=== PATIENT | female | born 1975 | race Caucasian/White ===

== ENCOUNTER 2020-12-13 16:43 | Inpatient (IN) | payer SELFPAY ==
[~2020-12-13] VITALS: Ht 154.9 cm; Wt 75.0 kg
[2020-12-13] MEDS ORDERED: SODIUM CHLORIDE 0.9% 1000ML 1,000 ML IV SCH (17:45)
[2020-12-13 18:02] LABS: BASOPHILS % 0.2 % (0.0-1.0); EOSINOPHILS # (AUTO) 0.1 (0.0-0.4); EOSINOPHILS % 0.7 % (0.0-6.0); HEMOGLOBIN 14.2 g/dL (12.0-16.0); LYMPHOCYTES # (AUTO) 1.7 (1.0-3.2); LYMPHOCYTES % 9.9 % (18.0-39.1); MEAN CORPUSCULAR HEMOGLOBIN 29.4 pg (28-32); MEAN CORPUSCULAR HGB CONC 34.6 g/dL (31-35); MEAN CORPUSCULAR VOLUME 84.9 fL (81-99); MONOCYTES # (AUTO) 0.9 (0.2-0.8); MONOCYTES % 5.3 % (4.4-11.3); NEUTROPHILS % 83.2 % (38.7-80.0); PLATELET COUNT 295 x10e3/uL (140-360); RED BLOOD COUNT 4.83 x10e6/uL (3.6-5.1); RED CELL DISTRIBUTION WIDTH 12.8 % (11.7-14.4)
[2020-12-13 18:05] LABS: CLARITY,URINE CLEAR (CLEAR); COLOR,URINE YELLOW (YELLOW); LEUKOCYTE ESTERASE ,URINE NEGATIVE (NEGATIVE); NITRITE,URINE NEGATIVE (NEGATIVE); PROTEIN,URINE DIPSTICK NEGATIVE (NEGATIVE)
[2020-12-13 18:06] LABS: KETONES,URINE TRACE (NEGATIVE); URINE UROBILINOGEN 0.2 mg/dL (0.2 - 1)
[2020-12-13 18:09] LABS: BACTERIA,URINE RARE /HPF; EPITHELIAL CELLS,URINE FEW /LPF; RBC,URINE 0-5 /HPF (0-5); WBC,URINE (MAN) 0-5 /HPF (0-5)
[2020-12-13 18:17] LABS: ALBUMIN 3.9 g/dL (3.5-5.0); ALBUMIN/GLOBULIN RATIO 1.2 (0.8-2.0); ANION GAP 18.2 mmol/L (8-16); CALCIUM 9.6 mg/dL (8.4-10.2); CREATININE, SERUM 0.84 mg/dL (0.57-1.11); POTASSIUM 4.2 mmol/L (3.5-5.1)
[2020-12-13] MEDS ORDERED: ASPIRIN 325 MG TAB PO ONE (20:00)
[2020-12-13] MEDS ORDERED: DEXTROSE 50% SYRINGE 50 ML IV PRN (20:15)
[2020-12-13 22:20] LABS: ABG PH 7.43 (7.35-7.45)
[2020-12-13 22:21] LABS: ABG HCO3 24 mmol/L (22-26); ABG PCO2 36 mmHg (35-45); ABG PO2 75 mmHg (80-105); ABG TCO2 25
[2020-12-13] MEDS: INSULIN REGULAR, HUMAN 100 UNIT/1 ML SQ SCH (22:49)
[2020-12-13] MEDS: SODIUM CHLORIDE 0.9% 1000ML 1,000 ML IV SCH (22:50)
[2020-12-13] MEDS: ACETAMINOPHEN 325 MG TAB PO PRN (23:27)
[2020-12-13] MEDS ORDERED: ACETAMINOPHEN 325 MG TAB ONE (23:34)
[2020-12-13] MEDS ORDERED: ASPIRIN 325 MG TAB ONE (23:35)
[2020-12-13 23:40] VITALS: BP 145/107
[2020-12-14] VITALS (8 sets, daily range): BP systolic 107–145; BP diastolic 82–107
[2020-12-14] MEDS: SODIUM CHLORIDE 0.9% 1000ML 1,000 ML IV SCH ×3 (01:12→21:57)
[2020-12-14] MEDS: IBUPROFEN 600 MG TAB PO PRN ×2 (03:52→14:00)
[2020-12-14] MEDS ORDERED: METFORMIN HCL500 MG PO (04:47)
[2020-12-14] MEDS ORDERED: LISINOPRIL10 MG PO (04:49)
[2020-12-14] MEDS ORDERED: AMOXICILLIN500 MG PO (04:49)
[2020-12-14] MEDS ORDERED: HYDROCHLOROTH12.5 MG PO (04:57)
[2020-12-14] MEDS ORDERED: SIMVASTATIN20 MG PO (04:58)
[2020-12-14] MEDS ORDERED: FENOFIBRATE145 MG PO (04:59)
[2020-12-14 05:07] LABS: BASOPHILS # (AUTO) 0.1 (0.0-0.1); BASOPHILS % 0.4 % (0.0-1.0); EOSINOPHILS # (AUTO) 0.3 (0.0-0.4); EOSINOPHILS % 2.4 % (0.0-6.0); HEMATOCRIT 38.6 % (34.2-44.1); HEMOGLOBIN 12.9 g/dL (12.0-16.0); LYMPHOCYTES # (AUTO) 3.4 (1.0-3.2); MEAN CORPUSCULAR HEMOGLOBIN 28.9 pg (28-32); MEAN CORPUSCULAR HGB CONC 33.4 g/dL (31-35); MEAN CORPUSCULAR VOLUME 86.5 fL (81-99); MONOCYTES # (AUTO) 0.8 (0.2-0.8); MONOCYTES % 6.4 % (4.4-11.3); NEUTROPHILS # (AUTO) 8.1 (2.1-6.9); NEUTROPHILS % 63.3 % (38.7-80.0); PLATELET COUNT 253 x10e3/uL (140-360); RED BLOOD COUNT 4.46 x10e6/uL (3.6-5.1); RED CELL DISTRIBUTION WIDTH 13.1 % (11.7-14.4)
[2020-12-14 05:45] LABS: ANION GAP 14.7 mmol/L (8-16); CALCIUM 8.7 mg/dL (8.4-10.2); CREATININE, SERUM 0.63 mg/dL (0.57-1.11); POTASSIUM 3.7 mmol/L (3.5-5.1)
[2020-12-14 06:11] LABS: CREATINE KINASE MB 4.1 ng/mL (0-5.0)
[2020-12-14] MEDS: INSULIN REGULAR, HUMAN 100 UNIT/1 ML SQ SCH ×4 (07:30→21:00)
[2020-12-14] MEDS: ACETAMINOPHEN 325 MG TAB PO PRN ×2 (09:08→16:42)
[2020-12-14 13:12] LABS: CREATINE KINASE MB 3.3 ng/mL (0-5.0)
[2020-12-14] MEDS: LEVETIRACETAM 500 MG TAB PO SCH (16:44)
[2020-12-14] MEDS ORDERED: AMOXICILLIN 250 MG CAP PO SCH (17:00)
[2020-12-14] MEDS ORDERED: SIMVASTATIN 20 MG TAB PO SCH (21:00)
[2020-12-14] MEDS: AMOXICILLIN 875 MG PO SCH (21:56)
[2020-12-15] VITALS: BP 134/97
[2020-12-15 04:10] VITALS: BP 138/86
[2020-12-15 06:04] LABS: BASOPHILS % 0.3 % (0.0-1.0); EOSINOPHILS # (AUTO) 0.3 (0.0-0.4); EOSINOPHILS % 3.4 % (0.0-6.0); HEMOGLOBIN 12.2 g/dL (12.0-16.0); LYMPHOCYTES # (AUTO) 2.6 (1.0-3.2); MEAN CORPUSCULAR VOLUME 87.9 fL (81-99); MONOCYTES # (AUTO) 0.5 (0.2-0.8); MONOCYTES % 5.8 % (4.4-11.3); NEUTROPHILS # (AUTO) 5.8 (2.1-6.9); NEUTROPHILS % 62.2 % (38.7-80.0); PLATELET COUNT 251 x10e3/uL (140-360); RED BLOOD COUNT 4.21 x10e6/uL (3.6-5.1); RED CELL DISTRIBUTION WIDTH 13.2 % (11.7-14.4)
[2020-12-15] MEDS: SODIUM CHLORIDE 0.9% 1000ML 1,000 ML IV SCH ×2 (06:24→12:00)
[2020-12-15 06:32] LABS: ANION GAP 15.4 mmol/L (8-16); CALCIUM 8.4 mg/dL (8.4-10.2); CREATININE, SERUM 0.59 mg/dL (0.57-1.11); POTASSIUM 4.4 mmol/L (3.5-5.1)
[2020-12-15] MEDS: INSULIN REGULAR, HUMAN 100 UNIT/1 ML SQ SCH ×3 (07:30→16:30)
[2020-12-15] MEDS ORDERED: METFORMIN HCL 500 MG TAB PO SCH (08:00)
[2020-12-15 08:30] VITALS: BP 138/86
[2020-12-15 08:34] VITALS: BP 136/94
[2020-12-15] MEDS ORDERED: FENOFIBRATE 54 MG PO SCH ×2 (09:00→21:00)
[2020-12-15] MEDS ORDERED: NON-FORMULARY MEDICATION (Hydrochlorothiazide 12.5 MG) PO SCH (09:00)
[2020-12-15] MEDS ORDERED: FENOFIBRATE 145 MG TAB PO SCH (09:00)
[2020-12-15] MEDS ORDERED: HYDROCHLOROTHIAZIDE 25 MG TAB PO SCH (09:00)
[2020-12-15] MEDS ORDERED: LISINOPRIL 10 MG TAB PO SCH (09:00)
[2020-12-15] MEDS: LEVETIRACETAM 500 MG TAB PO SCH ×2 (09:19→17:17)
[2020-12-15] MEDS: AMOXICILLIN 875 MG PO SCH (09:20)
[2020-12-15] MEDS: IBUPROFEN 600 MG TAB PO PRN ×2 (10:25→16:15)
[2020-12-15 12:07] VITALS: BP 130/90
[2020-12-15] MEDS ORDERED: DEPAKOTE DELAYED-RELEASE TAB 500 MG PO SCH (15:00)
[2020-12-15 16:56] VITALS: BP 143/93
[2020-12-15] MEDS ORDERED: DEPAKOTE ER500 MG PO ×2 (17:59→18:00)
[2020-12-15] MEDS ORDERED: KEPPRA750 MG PO (18:01)
== END 2020-12-15 18:45 | disposition home or self-care (01) | DRG 101 ==
LOC: ER 17:35 → ERHOLD 19:58 → MED/SURG3 23:17 → OBSVTOIN 12-15 09:47
DX: G40.409 Other generalized epilepsy and epileptic syndromes, not intractable, without status epilepticus (principal); I10 Essential (primary) hypertension; Z20.822 Contact with and (suspected) exposure to COVID-19
CPT/HCPCS: 36415; 36600; 70450; 80048; 80053; 81001; 82550; 82553; 82805; 82948; 84484; 85025; 93005; 96361; 99284; G0378; J1817; J7030; U0002